=== PATIENT | male | born 1975 | race Hispanic/Latino ===

== ENCOUNTER 2022-05-01 14:18 | Emergency (ER) | payer BC ==
[~2022-05-01] VITALS: Ht 170.2 cm; Wt 83.5 kg
[2022-05-01 14:32] VITALS: BP 155/104
[2022-05-01 14:58] LABS: EOSINOPHILS % (AUTO) 3.6 % (0.0-8.0); HEMATOCRIT 38.7 % (42-54); MEAN CORPUSCULAR HEMOGLOBIN 29.8 pg (27.0-33.0); MEAN CORPUSCULAR HGB CONC 36.2 g/dL (32.0-36.0); MEAN CORPUSCULAR VOLUME 82.3 fL (79-99); MONOCYTES % (AUTO) 8.7 % (3.0-13.0); NEUTROPHILS % (AUTO) 50.4 % (40.0-77.0); PLATELET COUNT (AUTO) 202 K/uL (130-400); RED CELL DISTRIBUTION WIDTH 13.6 % (11.0-15.5); WHITE BLOOD COUNT (AUTO) 6.7 K/uL (4.8-10.8)
[2022-05-01 15:07] LABS: POTASSIUM 3.1 mmol/L (3.5-5.1)
[2022-05-01 15:12] LABS: TOTAL PROTEIN, SERUM 6.6 g/dL (6.0-8.3)
[2022-05-01 16:40] LABS: APPEARANCE,URINE CLEAR (CLEAR); BILIRUBIN,URINE NEGATIVE (NEGATIVE); COLOR,URINE COLORLESS (YELLOW); GLUCOSE, URINE (UA) NEGATIVE (NEGATIVE); KETONES,URINE NEGATIVE (NEGATIVE); LEUKOCYTE ESTERASE ,URINE NEGATIVE Leu/uL (NEGATIVE); NITRATE,URINE NEGATIVE (NEGATIVE); OCCULT BLOOD,URINE NEGATIVE (NEGATIVE); PROTEIN,URINE NEGATIVE (NEGATIVE); UROBILINOGEN,URINE 0.2 mg/dL (0.2-1.0)
[2022-05-01] MEDS ORDERED: KCL 20 MEQ ERTAB PO ONE (17:00)
== END 2022-05-01 17:16 | disposition home or self-care (01) ==
LOC: EDH 14:18
DX: M94.0 Chondrocostal junction syndrome [Tietze] (principal); I10 Essential (primary) hypertension
CPT/HCPCS: 36415; 71045; 80053; 81003; 84484; 85025; 93005

== ENCOUNTER 2023-09-15 10:20 | Emergency (ER) | payer BC ==
[~2023-09-15] VITALS: Ht 170.2 cm; Wt 83.9 kg
[2023-09-15 11:16] LABS: BASOPHILS # (AUTO) 0.07 K/uL (0.00-0.20); BASOPHILS % (AUTO) 1.1 % (0.0-5.0); EOSINOPHILS # (AUTO) 0.06 K/uL (0.00-0.70); EOSINOPHILS % (AUTO) 0.9 % (0.0-8.0); HEMATOCRIT 41.1 % (42-54); IMMATURE GRANULOCYTE ABSOLUTE 0.02 K/uL (0-1); LYMPHOCYTES # (AUTO) 1.9 K/uL (1.0-4.8); LYMPHOCYTES % (AUTO) 29.2 % (21.0-51.0); MEAN CORPUSCULAR HEMOGLOBIN 29.8 pg (27.0-33.0); MEAN CORPUSCULAR VOLUME 82.7 fL (79-99); MONOCYTES # (AUTO) 0.5 K/uL (0.1-1.0); MONOCYTES % (AUTO) 7.8 % (3.0-13.0); NEUTROPHILS % (AUTO) 60.7 % (40.0-77.0); PLATELET COUNT (AUTO) 190 K/uL (130-400); RED BLOOD CELL COUNT(AUTO) 4.97 MIL/uL (4.50-6.20); RED CELL DISTRIBUTION WIDTH 13.9 % (11.0-15.5); WHITE BLOOD COUNT (AUTO) 6.5 K/uL (4.8-10.8)
[2023-09-15 11:28] LABS: CREATININE 0.8 mg/dL (0.5-1.3); POTASSIUM 3.3 mmol/L (3.5-5.1)
[2023-09-15 11:35] LABS: ALBUMIN 4.2 g/dL (3.5-5.0); BILIRUBIN,TOTAL 1.2 mg/dL (0.2-1.0); TOTAL PROTEIN, SERUM 7.1 g/dL (6.0-8.3)
[2023-09-15] MEDS: POTASSIUM BICARB/CIT AC 25 MEQ TABLET.EFF PO ONE (12:41)
[2023-09-15 12:49] VITALS: BP 138/82; PULSE 76; RESP 18; O2SAT 97
== END 2023-09-15 12:50 | disposition home or self-care (01) ==
LOC: EDH 10:20
DX: R07.89 Other chest pain (principal); E87.6 Hypokalemia; R20.2 Paresthesia of skin; I10 Essential (primary) hypertension
CPT/HCPCS: 36415; 71045; 80053; 84484; 85025; 93005